=== PATIENT | female | born 1960 | race Caucasian/White ===

== ENCOUNTER 2017-01-14 13:04 | Emergency (ER) | payer OTHER ==
[~2017-01-14 13:04] MED LIST: ASPI81TA27 PO; ATOR40TA52 PO; DULA0.5I SC; FLUO20CA19 PO; LEVO500T21 PO; LISI-646 PO; METF-372 PO; METR500T PO
[2017-01-14 13:29] VITALS: BP 141/74
== END 2017-01-14 23:58 | disposition left against medical advice (07) ==
LOC: ER 13:04
DX: R10.84 Generalized abdominal pain (principal); Z53.21 Procedure and treatment not carried out due to patient leaving prior to being seen by health care provider
CPT/HCPCS: 82962

== ENCOUNTER 2017-10-15 08:38 | Emergency (ER) | payer OTHER ==
[~2017-10-15] VITALS: Ht 167.6 cm; Wt 98.4 kg
[2017-10-15] MEDS ORDERED: SODIUM CHLORIDE 0.9% 1,000 ML IV ONE (08:58)
[2017-10-15] MEDS ORDERED: KETOROLAC TROMETH 30 MG/ML 1ML VIAL IV ONE (09:00)
[2017-10-15 09:57] LABS: Basophils # (auto) 0.1 uL; Basophils % (auto) 0.7 % (0.0-2.0); Eosinophils # (auto) 0.5 uL; Eosinophils % (auto) 5.1 % (0.0-7.0); Hemoglobin 12.9 g/dL (12.2-16.2); Lymphocytes # (auto) 2.4 uL; Lymphocytes % (auto) 24.1 % (10.0-50.0); Mean Corpuscular Hemoglobin 27.7 pg (28.0-32.0); Mean Corpuscular Hgb Conc. 32.9 g/dL (32.0-36.0); Mean Corpuscular Volume 84.2 fL (80.0-100.0); Monocytes # (auto) 0.7 uL; Monocytes % (auto) 6.7 % (0.0-12.0); Neutrophils # (auto) 6.4 uL; Neutrophils % (auto) 63.4 % (37.0-80.0); Platelet Count (auto) 359 10^3/uL (140-450); Red Blood Cells 4.64 10^6/uL (4.0-5.20); Red Cell Distribution Width 13.9 % (11.8-14.3); White Blood Cell 10.1 10^3/uL (4.4-10.8)
[2017-10-15 10:16] LABS: Alanine Aminotransferase 22 U/L (13-56); Albumin 3.2 g/dL (3.4-5.0); Alkaline Phosphatase 96 U/L (45-117); Amylase 14 U/L (25-115); Anion Gap 10 (5-15); Aspartate Aminotransferase 11 U/L (15-37); BUN/Creatinine Ratio 12.7; Bilirubin, Total 0.3 mg/dL (0.2-1.0); Blood Urea Nitrogen 8 mg/dL (7-18); Calcium 9.2 mg/dL (8.5-10.1); Carbon Dioxide 26 mmol/L (21-32); Chloride 103 mmol/L (98-107); GFR African American 124 mL/min; GFR Non-African American 103 mL/min; Glucose 320 mg/dL (74-106); Lipase 91 U/L (73-393); Potassium 4.1 mmol/L (3.5-5.1); Sodium 139 mmol/L (136-145)
[2017-10-15 11:25] LABS: Urine Bacteria FEW /hpf (None Seen); Urine Blood Negative /uL (Negative); Urine Mucus FEW (None Seen); Urine Specific Gravity 1.035 (1.001-1.035); Urine WBC 9 /hpf (0 - 5)
[2017-10-15] MEDS ORDERED: cefTRIAXone 1GM/10ml IVPUSH 10 ML IV ONE (11:30)
[2017-10-15] MEDS ORDERED: InsuLIN REG 1unit/0.01ml Soln (100units/ml) IV ONE (11:30)
[2017-10-15 12:18] VITALS: BP 112/66
== END 2017-10-15 13:05 | disposition home or self-care (01) ==
LOC: ER 08:42
DX: R10.31 Right lower quadrant pain (principal); F17.210 Nicotine dependence, cigarettes, uncomplicated; F12.10 Cannabis abuse, uncomplicated
CPT/HCPCS: 36415; 74176; 80053; 81001; 82150; 82962; 83690; 84484; 85025; 93005; 96374; 96375; 99285; J1815; J1885; J7030

== ENCOUNTER 2018-02-05 12:07 | Emergency (ER) | payer OTHER ==
[~2018-02-05] VITALS: Ht 167.6 cm; Wt 92.5 kg
[2018-02-05 12:23] VITALS: BP 113/46
[2018-02-05] MEDS ORDERED: SODIUM CHLORIDE 0.9% 1,000 ML IV ONE (12:25)
[2018-02-05] MEDS ORDERED: MORPHINE SULF INJ 2 MG/ML SYRINGE 1ML IV ONE (12:30)
[2018-02-05] MEDS ORDERED: ONDANSETRON HCL 4 MG/2 ML VIAL IV ONE (12:30)
[2018-02-05 12:58] LABS: Urine Bacteria NONE SEEN /hpf (None Seen); Urine Blood Negative /uL (Negative); Urine Mucus FEW (None Seen); Urine Specific Gravity 1.036 (1.001-1.035); Urine WBC 2 /hpf (0 - 5)
[2018-02-05 13:06] LABS: Basophils # (auto) 0.1 uL; Basophils % (auto) 0.6 % (0.0-2.0); Eosinophils # (auto) 0.5 uL; Eosinophils % (auto) 3.9 % (0.0-7.0); Hematocrit 40.2 % (36.0-46.0); Hemoglobin 13.5 g/dL (12.2-16.2); Lymphocytes # (auto) 3.6 uL; Lymphocytes % (auto) 28.3 % (10.0-50.0); Mean Corpuscular Hemoglobin 28.4 pg (28.0-32.0); Mean Corpuscular Hgb Conc. 33.7 g/dL (32.0-36.0); Mean Corpuscular Volume 84.2 fL (80.0-100.0); Monocytes # (auto) 0.7 uL; Monocytes % (auto) 5.3 % (0.0-12.0); Neutrophils # (auto) 7.8 uL; Neutrophils % (auto) 61.9 % (37.0-80.0); Platelet Count (auto) 419 10^3/uL (140-450); Red Blood Cells 4.77 10^6/uL (4.0-5.20); Red Cell Distribution Width 13.9 % (11.8-14.3); White Blood Cell 12.6 10^3/uL (4.4-10.8)
[2018-02-05 13:12] LABS: INR 0.89 (0.9-1.15); Partial Thromboplastin Time 31.5 sec (23.78-33.04); Prothrombin Time 9.6 sec (9.27-12.13)
[2018-02-05 13:17] LABS: Albumin 3.3 g/dL (3.4-5.0); Anion Gap 7 (5-15); Carbon Dioxide 28 mmol/L (21-32); Chloride 102 mmol/L (98-107); Lipase 123 U/L (73-393); Potassium 4.2 mmol/L (3.5-5.1); Sodium 137 mmol/L (136-145)
[2018-02-05 13:20] LABS: Alanine Aminotransferase 28 U/L (13-56); Amylase 23 U/L (25-115); Aspartate Aminotransferase 15 U/L (15-37); BUN/Creatinine Ratio 20.8; Blood Urea Nitrogen 15 mg/dL (7-18); GFR African American 107 mL/min; GFR Non-African American 88 mL/min; Glucose 264 mg/dL (74-106)
[2018-02-05] MEDS ORDERED: metroNIDAZOLE 500MG/100ML 100 ML IV ONE (13:30)
[2018-02-05] MEDS ORDERED: PIPERACILLIN-TAZOB 3.375GM 100 ML IV ONE (13:30)
[2018-02-05 13:31] LABS: Alkaline Phosphatase 121 U/L (45-117); Bilirubin, Total 0.3 mg/dL (0.2-1.0); Total Protein 7.3 g/dL (6.4-8.2)
[2018-02-05] MEDS ORDERED: SODIUM CHLORIDE 0.9% 1,000 ML IV SCH (13:49)
[2018-02-05] MEDS ORDERED: LORazepam 0.5 MG TAB PO PRN (14:00)
[2018-02-05] MEDS ORDERED: TEMAZEPAM 15 MG CAP PO PRN (14:00)
[2018-02-05] MEDS ORDERED: metroNIDAZOLE 500MG/100ML 100 ML IV SCH ×2 (14:00→22:00)
[2018-02-05] MEDS ORDERED: MORPHINE SULF INJ 2 MG/ML SYRINGE 1ML IV PRN ×2 (14:00)
[2018-02-05] MEDS ORDERED: NITROGLYCERIN 0.4 MG SL TAB SL PRN (14:00)
[2018-02-05] MEDS ORDERED: cefTRIAXone 1GM/10ml IVPUSH 10 ML IV ONE (14:00)
[2018-02-05] MEDS ORDERED: PROMETHAZINE HCL 25 MG/ML 1ML IV PRN (14:00)
[2018-02-05] MEDS ORDERED: FAMOTIDINE (10MG/ML) 2ML VL IV SCH (14:00)
[2018-02-05] MEDS ORDERED: DEXTROSE (50%) 50ML SYRG IV PRN (14:00)
[2018-02-05] MEDS ORDERED: ACETAMINOPHEN 500 MG TAB PO PRN (14:00)
[2018-02-05] MEDS ORDERED: HYDROcodone-ACET 5/325MG TAB PO PRN (14:00)
[2018-02-05] MEDS ORDERED: InsuLIN REG 1unit/0.01ml Soln (100units/ml) SC SCH (17:00)
[2018-02-05] MEDS ORDERED: ACCU-CHEK COMFORT CURVE STRIP VI SCH (17:00)
[2018-02-05] MEDS ORDERED: ATORVASTATIN 20 MG TAB PO SCH (22:00)
[2018-02-06] MEDS ORDERED: cefTRIAXone 1GM/10ml IVPUSH 10 ML IV SCH (09:00)
[2018-02-06] MEDS ORDERED: PANTOPRAZOLE 40 MG TAB PO SCH (10:00)
[2018-02-06] MEDS ORDERED: ASPirin-EC 81 mg tab PO SCH (10:00)
[2018-02-06] MEDS ORDERED: FLUoxetine HCL 20 MG CAP PO SCH (10:00)
[2018-02-06] MEDS ORDERED: LISINOPRIL 20 MG TAB PO SCH (10:00)
== END 2018-02-05 14:28 | disposition left against medical advice (07) ==
LOC: ER 12:07
DX: K57.92 Diverticulitis of intestine, part unspecified, without perforation or abscess without bleeding (principal); E11.9 Type 2 diabetes mellitus without complications; E78.5 Hyperlipidemia, unspecified; I10 Essential (primary) hypertension; F17.210 Nicotine dependence, cigarettes, uncomplicated; F12.10 Cannabis abuse, uncomplicated; Z79.82 Long term (current) use of aspirin; Z90.710 Acquired absence of both cervix and uterus
CPT/HCPCS: 36415; 74176; 80053; 81001; 82150; 83036; 83605; 83690; 84484; 85025; 85610; 85730; 87040

== ENCOUNTER 2018-02-22 12:53 | Inpatient (IN) | payer OTHER ==
[~2018-02-22] VITALS: Ht 167.6 cm; Wt 94.2 kg
[2018-02-22 13:59] LABS: Urine Bacteria FEW /hpf (None Seen); Urine Blood Negative /uL (Negative); Urine Mucus FEW (None Seen); Urine Specific Gravity 1.038 (1.001-1.035); Urine WBC 5 /hpf (0 - 5)
[2018-02-22 15:03] LABS: Basophils # (auto) 0.1 uL; Basophils % (auto) 0.8 % (0.0-2.0); Eosinophils # (auto) 0.4 uL; Eosinophils % (auto) 3.4 % (0.0-7.0); Hematocrit 41.2 % (36.0-46.0); Hemoglobin 13.5 g/dL (12.2-16.2); Lymphocytes # (auto) 3.3 uL; Lymphocytes % (auto) 30.1 % (10.0-50.0); Mean Corpuscular Hemoglobin 27.8 pg (28.0-32.0); Mean Corpuscular Hgb Conc. 32.7 g/dL (32.0-36.0); Mean Corpuscular Volume 85.1 fL (80.0-100.0); Monocytes # (auto) 0.9 uL; Neutrophils # (auto) 6.4 uL; Neutrophils % (auto) 57.7 % (37.0-80.0); Platelet Count (auto) 400 10^3/uL (140-450); Red Blood Cells 4.84 10^6/uL (4.0-5.20); Red Cell Distribution Width 14.2 % (11.8-14.3)
[2018-02-22 15:17] LABS: Albumin 3.2 g/dL (3.4-5.0); Anion Gap 10 (5-15); Carbon Dioxide 26 mmol/L (21-32); Chloride 102 mmol/L (98-107); Glucose 267 mg/dL (74-106); Magnesium 1.9 mg/dL (1.6-2.6); Potassium 3.8 mmol/L (3.5-5.1); Sodium 138 mmol/L (136-145)
[2018-02-22 15:20] LABS: Alanine Aminotransferase 19 U/L (13-56); Alkaline Phosphatase 86 U/L (45-117); Amylase 24 U/L (25-115); Aspartate Aminotransferase 10 U/L (15-37); BUN/Creatinine Ratio 18.1; Bilirubin, Total 0.5 mg/dL (0.2-1.0); Blood Urea Nitrogen 13 mg/dL (7-18); GFR African American 107 mL/min; GFR Non-African American 88 mL/min; Lipase 86 U/L (73-393); Total Protein 7.4 g/dL (6.4-8.2)
[2018-02-22] MEDS ORDERED: SODIUM CHLORIDE 0.9% 500 ML IVB ONE (16:42)
[2018-02-22] MEDS ORDERED: PANTOPRAZOLE 40 MG/10 ML VIAL IV STA (16:42)
[2018-02-22] MEDS ORDERED: ONDANSETRON HCL 4 MG/2 ML VIAL IV ONE (16:45)
[2018-02-22] MEDS ORDERED: MORPHINE SULFATE 4 MG/ML SYR/VIAL IV ONE (16:45)
[2018-02-22] MEDS ORDERED: cefTRIAXone 1GM/10ml IVPUSH 10 ML IV ONE (20:45)
[2018-02-22] MEDS ORDERED: ACETAMINOPHEN 325 MG TAB PO PRN (20:45)
[2018-02-22] MEDS ORDERED: TEMAZEPAM 15 MG CAP PO PRN (20:45)
[2018-02-22] MEDS ORDERED: DEXTROSE (50%) 50ML SYRG IV PRN (20:45)
[2018-02-22] MEDS: ONDANSETRON HCL 4 MG/2 ML VIAL IV PRN (21:32)
[2018-02-22] MEDS: MORPHINE SULFATE 4 MG/ML SYR/VIAL IV PRN (21:34)
[2018-02-22] MEDS: metroNIDAZOLE 500MG/100ML 100 ML IV SCH (21:41)
[2018-02-22] MEDS: ATORVASTATIN 20 MG TAB PO SCH (21:41)
[2018-02-22 23:40] VITALS: BP 100/55
[2018-02-22 23:45] VITALS: BP 100/55
[2018-02-23] MEDS: ONDANSETRON HCL 4 MG/2 ML VIAL IV PRN (00:05)
[2018-02-23] MEDS: HYDROcodone-ACET 5/325MG TAB PO PRN ×4 (00:05→22:29)
[2018-02-23] MEDS: ACCU-CHEK COMFORT CURVE STRIP VI SCH ×5 (00:15→23:47)
[2018-02-23] MEDS: InsuLIN REG 1unit/0.01ml Soln (100units/ml) SC SCH ×5 (00:15→23:47)
[2018-02-23 05:00] VITALS: BP 94/56
[2018-02-23] MEDS ORDERED: LISI10TA6 PO (05:01)
[2018-02-23] MEDS ORDERED: ATOR20TA50 PO (05:01)
[2018-02-23] MEDS ORDERED: ATEN50TA PO (05:01)
[2018-02-23] MEDS ORDERED: INSUINJ37 SUBCUT (05:01)
[2018-02-23] MEDS: metroNIDAZOLE 500MG/100ML 100 ML IV SCH ×3 (05:24→21:24)
[2018-02-23 06:49] LABS: Basophils # (auto) 0.1 uL; Basophils % (auto) 0.6 % (0.0-2.0); Eosinophils # (auto) 0.5 uL; Eosinophils % (auto) 5.2 % (0.0-7.0); Hematocrit 36.2 % (36.0-46.0); Hemoglobin 12.2 g/dL (12.2-16.2); Lymphocytes # (auto) 2.7 uL; Lymphocytes % (auto) 30.5 % (10.0-50.0); Mean Corpuscular Hemoglobin 28.6 pg (28.0-32.0); Mean Corpuscular Hgb Conc. 33.7 g/dL (32.0-36.0); Mean Corpuscular Volume 84.8 fL (80.0-100.0); Monocytes # (auto) 0.7 uL; Monocytes % (auto) 7.5 % (0.0-12.0); Neutrophils % (auto) 56.2 % (37.0-80.0); Nucleated Red Blood Cells % 0.1 %; Platelet Count (auto) 323 10^3/uL (140-450); Red Blood Cells 4.27 10^6/uL (4.0-5.20); Red Cell Distribution Width 14.1 % (11.8-14.3); White Blood Cell 8.9 10^3/uL (4.4-10.8)
[2018-02-23] MEDS: MORPHINE SULFATE 4 MG/ML SYR/VIAL IV PRN (06:52)
[2018-02-23 07:16] LABS: Albumin 2.9 g/dL (3.4-5.0); BUN/Creatinine Ratio 26.7; Bilirubin, Total 0.4 mg/dL (0.2-1.0); Potassium 4.4 mmol/L (3.5-5.1); Total Protein 6.5 g/dL (6.4-8.2)
[2018-02-23 08:00] VITALS: BP 102/61
[2018-02-23 09:00] VITALS: BP 102/61
[2018-02-23] MEDS: PANTOPRAZOLE 40 MG/10 ML VIAL IV SCH (09:26)
[2018-02-23] MEDS: cefTRIAXone 1GM/10ml IVPUSH 10 ML IV SCH (09:26)
[2018-02-23] MEDS: LISINOPRIL 20 MG TAB PO SCH (09:32)
[2018-02-23 13:00] VITALS: BP 102/59
[2018-02-23] MEDS: BACITRACIN TOP OINT 1 UD PKG TOP SCH ×2 (13:14→21:23)
[2018-02-23 17:00] VITALS: BP 108/52
[2018-02-23] MEDS ORDERED: VANCOMYCIN PER PHARMACY 0 MG IV SCH (19:45)
[2018-02-23] MEDS ORDERED: VANCOMYCIN 1,250 MG in D5W 5% 250 ML IV SCH (21:00)
[2018-02-23] MEDS ORDERED: VANCOMYCIN 1GM/250ML 250 ML IV SCH (21:00)
[2018-02-23] MEDS: ATORVASTATIN 20 MG TAB PO SCH (21:23)
[2018-02-23 22:06] VITALS: BP 91/57
[2018-02-23 22:18] LABS: INR 0.97 (0.9-1.15); Prothrombin Time 10.4 sec (9.27-12.13)
[2018-02-24] MEDS ORDERED: diphenhdrAMINE HCL 25 MG CAP PO PRN (02:30)
[2018-02-24] MEDS ORDERED: methylPREDNISolone SOD SUCC 125 MG/2 ML VL IM ONE (03:00)
[2018-02-24 05:44] VITALS: BP 94/48
[2018-02-24] MEDS: metroNIDAZOLE 500MG/100ML 100 ML IV SCH ×3 (06:03→22:05)
[2018-02-24] MEDS: ACCU-CHEK COMFORT CURVE STRIP VI SCH ×3 (06:03→18:04)
[2018-02-24] MEDS: InsuLIN REG 1unit/0.01ml Soln (100units/ml) SC SCH ×3 (06:03→18:03)
[2018-02-24 06:44] LABS: Basophils # (auto) 0 uL; Basophils % (auto) 0.4 % (0.0-2.0); Eosinophils # (auto) 0.1 uL; Eosinophils % (auto) 0.6 % (0.0-7.0); Hematocrit 38.5 % (36.0-46.0); Hemoglobin 12.9 g/dL (12.2-16.2); Lymphocytes # (auto) 1.1 uL; Lymphocytes % (auto) 10.1 % (10.0-50.0); Mean Corpuscular Hemoglobin 28.4 pg (28.0-32.0); Mean Corpuscular Hgb Conc. 33.7 g/dL (32.0-36.0); Mean Corpuscular Volume 84.3 fL (80.0-100.0); Monocytes # (auto) 0.2 uL; Monocytes % (auto) 2.3 % (0.0-12.0); Neutrophils # (auto) 9.2 uL; Neutrophils % (auto) 86.6 % (37.0-80.0); Platelet Count (auto) 343 10^3/uL (140-450); Red Blood Cells 4.56 10^6/uL (4.0-5.20); Red Cell Distribution Width 13.9 % (11.8-14.3); White Blood Cell 10.7 10^3/uL (4.4-10.8)
[2018-02-24 06:59] LABS: Calcium 8.7 mg/dL (8.5-10.1); Magnesium 1.9 mg/dL (1.6-2.6); Potassium 4.2 mmol/L (3.5-5.1)
[2018-02-24 09:00] VITALS: BP 117/66
[2018-02-24] MEDS: cefTRIAXone 1GM/10ml IVPUSH 10 ML IV SCH (09:01)
[2018-02-24] MEDS: PANTOPRAZOLE 40 MG/10 ML VIAL IV SCH (09:58)
[2018-02-24] MEDS: LEVOFLOXACIN 500MG 100 ML IV SCH (09:59)
[2018-02-24] MEDS: LISINOPRIL 20 MG TAB PO SCH (09:59)
[2018-02-24] MEDS: BACITRACIN TOP OINT 1 UD PKG TOP SCH ×3 (09:59→22:00)
[2018-02-24 13:05] VITALS: BP 120/64
[2018-02-24] MEDS: HYDROcodone-ACET 5/325MG TAB PO PRN (15:07)
[2018-02-24 17:00] VITALS: BP 122/68
[2018-02-24 22:00] VITALS: BP 105/61
[2018-02-24] MEDS: ATORVASTATIN 20 MG TAB PO SCH (22:05)
[2018-02-25] MEDS: ACCU-CHEK COMFORT CURVE STRIP VI SCH ×5 (00:06→23:48)
[2018-02-25] MEDS: InsuLIN REG 1unit/0.01ml Soln (100units/ml) SC SCH ×5 (00:06→23:48)
[2018-02-25 05:55] VITALS: BP 107/49
[2018-02-25] MEDS: metroNIDAZOLE 500MG/100ML 100 ML IV SCH ×3 (06:31→22:03)
[2018-02-25 09:00] VITALS: BP 101/59
[2018-02-25] MEDS: LEVOFLOXACIN 500MG 100 ML IV SCH (09:28)
[2018-02-25] MEDS: PANTOPRAZOLE 40 MG/10 ML VIAL IV SCH (09:28)
[2018-02-25] MEDS: BACITRACIN TOP OINT 1 UD PKG TOP SCH ×2 (09:29→22:00)
[2018-02-25] MEDS ORDERED: LINEZOLID 600MG/300ML 300 ML IV SCH (10:00)
[2018-02-25] MEDS: LISINOPRIL 20 MG TAB PO SCH (10:00)
[2018-02-25 13:00] VITALS: BP 124/73
[2018-02-25 17:00] VITALS: BP 111/70
[2018-02-25 21:51] VITALS: BP 118/69
[2018-02-25] MEDS ORDERED: INSULIN LANTUS (GLARGINE) 1 /0.01ml (100units/ml) SC SCH (22:00)
[2018-02-25] MEDS: ATORVASTATIN 20 MG TAB PO SCH (22:03)
[2018-02-25] MEDS: LINEZOLID 600MG/300ML 300 ML IV SCH (23:36)
[2018-02-26] MEDS: ONDANSETRON HCL 4 MG/2 ML VIAL IV PRN ×2 (02:35→06:55)
[2018-02-26 05:17] VITALS: BP 133/77
[2018-02-26] MEDS: InsuLIN REG 1unit/0.01ml Soln (100units/ml) SC SCH ×3 (06:18→18:05)
[2018-02-26] MEDS: metroNIDAZOLE 500MG/100ML 100 ML IV SCH ×2 (06:18→14:18)
[2018-02-26] MEDS: ACCU-CHEK COMFORT CURVE STRIP VI SCH ×3 (06:18→18:05)
[2018-02-26] MEDS: PANTOPRAZOLE 40 MG/10 ML VIAL IV SCH ×2 (06:46→10:34)
[2018-02-26 08:55] VITALS: BP 130/81
[2018-02-26] MEDS: BACITRACIN TOP OINT 1 UD PKG TOP SCH (10:00)
[2018-02-26] MEDS: LISINOPRIL 20 MG TAB PO SCH (10:34)
[2018-02-26] MEDS: LEVOFLOXACIN 500MG 100 ML IV SCH (10:34)
[2018-02-26] MEDS: LINEZOLID 600MG/300ML 300 ML IV SCH (10:35)
[2018-02-26 13:22] VITALS: BP 126/63
[2018-02-26 13:33] VITALS: BP 130/81
[2018-02-26 17:10] VITALS: BP 127/70
== END 2018-02-26 18:01 | disposition home or self-care (01) | DRG 872 ==
LOC: ER 12:53 → OVERFLOW 12:54 → CENTRAL 23:30
PROVIDERS: ADMIT Nurse Practitioner; ATTEND Internal Medicine
DX: A41.1 Sepsis due to other specified staphylococcus (principal); K57.32 Diverticulitis of large intestine without perforation or abscess without bleeding; E44.1 Mild protein-calorie malnutrition; E78.5 Hyperlipidemia, unspecified; F12.90 Cannabis use, unspecified, uncomplicated; F17.210 Nicotine dependence, cigarettes, uncomplicated; H60.12 Cellulitis of left external ear; I10 Essential (primary) hypertension; E11.65 Type 2 diabetes mellitus with hyperglycemia; B95.8 Unspecified staphylococcus as the cause of diseases classified elsewhere; E66.9 Obesity, unspecified; I48.91 Unspecified atrial fibrillation; J45.909 Unspecified asthma, uncomplicated; K76.0 Fatty (change of) liver, not elsewhere classified; Z88.1 Allergy status to other antibiotic agents; Z90.710 Acquired absence of both cervix and uterus; Z79.899 Other long term (current) drug therapy; Z79.82 Long term (current) use of aspirin; Z98.51 Tubal ligation status; Z68.33 Body mass index [BMI] 33.0-33.9, adult
CPT/HCPCS: 36415; 71045; 74176; 76705; 80048; 80053; 81001; 82150; 82962; 83036; 83690; 83735; 84484; 85025; 85610; 86850; 86900; 86901; 87040; 87077; 87186; 93005; 93306; 96361; 96374; 96375; C9113; J0696; J1815; J1956; J2405; J3490; J7060